=== PATIENT | male | born 1990 | race Asian ===

== ENCOUNTER 2022-11-08 12:26 | Emergency (ER) | payer OTHER ==
[2022-11-08 13:01] VITALS: BP 112/70; PULSE 83; RESP 20; TEMP 99.3; BMI 28.1
[2022-11-08] MEDS ORDERED: ONDANSETRON 4 MG TABLET PO ONE (14:09)
[2022-11-08] MEDS ORDERED: ACETAMINOPHEN 1000 MG/100 ML BAG IVPB ONE (14:09)
[2022-11-08] MEDS ORDERED: SODIUM CHLORIDE 0.9% 500 ML INFUS.BAG IV ONE (14:10)
[2022-11-08] MEDS ORDERED: ONDANSETRON 4 MG/2 ML VIAL ONE ×2 (14:49→15:06)
[2022-11-08] MEDS ORDERED: ACETAMINOPHEN INJECTION 100 ML IVPB ONE (14:49)
[2022-11-08 15:43] LABS: HEMATOCRIT 45.2 % (35.4-49); HEMOGLOBIN 14.8 GM/dL (11.7-16.9); MCH 28.8 pg (25.7-33.7); MCHC 32.8 g/dl (32.0-35.9); MEAN CELL VOLUME 87.7 fl (80-96); MEAN PLT VOLUME 8.9 fl (7.5-11.1); PLATELET COUNT 169 10^3/uL (134-434); RBC 5.15 M/mm3 (4.00-5.60)
[2022-11-08] MEDS ORDERED: METOCLOPRAMIDE HCL INJECTION 10 MG/2 ML VIAL IVPUSH ONE (16:02)
[2022-11-08 16:06] LABS: ALBUMIN 3.8 g/dl (3.4-5.0); BLOOD UREA NITROGEN 16.6 mg/dL (7-18); CALCIUM 9.1 mg/dL (8.5-10.1)
[2022-11-08 16:11] LABS: TOT PROT 7.2 g/dl (6.4-8.2)
[2022-11-08] MEDS ORDERED: METOCLOPRAMIDE HCL INJECTION 10 MG/2 ML VIAL ONE (16:14)
[2022-11-08] MEDS ORDERED: MECLIZINE HCL 12.5 MG TABLET PO ONE (17:34)
[2022-11-08] MEDS ORDERED: MECLIZINE HCL 12.5 MG TABLET ONE (17:45)
== END 2022-11-08 18:50 | disposition home or self-care (01) ==
LOC: EDBD 12:26 → JER 12:26
PROC: 3E0333Z Introduction of Anti-inflammatory into Peripheral Vein, Percutaneous Approach (ICD-10-PCS; principal; 2022-11-08)
PROC: 3E033GC Introduction of Other Therapeutic Substance into Peripheral Vein, Percutaneous Approach (ICD-10-PCS; 2022-11-08)
DX: R05.1 Acute cough (principal); R09.81 Nasal congestion; R51.9 Headache, unspecified
CPT/HCPCS: 36415; 71046-TC-FY; 80053; 85027; 99284-25